=== PATIENT | female | born 1995 | race Two or more races ===

== ENCOUNTER 2025-02-13 05:41 | Inpatient (IN) | payer OTHER ==
[~2025-02-13] VITALS: Ht 157.5 cm; Wt 90.7 kg
[2025-02-13] VITALS (9 sets, daily range): BP systolic 123–140; BP diastolic 72–99; O2SAT 98
[2025-02-13] MEDS ORDERED: RINGERS SOLUTION,LACTATED 1,000 ML IV SCH (06:00)
[2025-02-13 06:49] LABS: BASO % 0.2 % (0.1-1.2); EOS # 0.09 (0.04-0.54); EOS % 0.8 % (0.7-7.0); LYMPH # 1.88 (1.18-3.74); LYMPH % 17.5 % (19.3-53.1); MEAN PLATELET VOLUME 10.90 fl (9.4-12.4); MONO # 0.66 (0.24-0.82); MONO % 6.1 % (4.7-12.5); NEUT # 8.05 (1.56-6.13); NEUT % 75.0 % (34.0-71.1); RED CELL DISTRIBUTION WIDTH 13.9 % (11.6-14.4); URINE APPEARANCE Clear; URINE BILIRRUBIN Negative (NEGATIVE); URINE BLOOD Negative; URINE COLOR Yellow; URINE GLUCOSE Negative (NEGATIVE); URINE KETONE Negative (NEGATIVE); URINE LEUKOCYTE Negative; URINE NITRATE Negative; URINE PROTEIN Negative (NEGATIVE); URINE UROBILINOGEN 0.2 E.U./dl
[2025-02-13 06:52] LABS: URINE BACTERIA 381.9 uL (0.0-1933); URINE EPITHELIAL CELLS 5.9 uL (0.0-38.8); URINE RBC 4.5 uL (0.0-20.8); URINE WBC 5.6 uL (0.0-23.2)
[2025-02-13 07:08] LABS: URINE CAST 0.00 uL (0.0-1.40)
[2025-02-13 07:46] LABS: ALT/SGPT 29.0 U/L (12-78); AST/SGOT 16.0 U/L (15-37); BILIRUBIN TOTAL 0.65 mg/dL (0.3-1.2); BUN CREA RATIO 24.0 (7.0-25.0); CREATININE SERUM 0.49 mg/dL (0.55-1.02); GFR 149.31; GLOBULINA 3.8 G/DL (2.4-3.5); GLUCOSE FASTING 87.0 mg/dL (65-100); OSMOLALITY SERUM 279.0 MOSM/KG (275-295)
[2025-02-13 07:55] LABS: INR 0.99
[2025-02-13] MEDS ORDERED: OXYTOCIN 20 UNITS/500ML RL PIGGYBAG IV SCH ×2 (10:30→11:00)
[2025-02-13] MEDS ORDERED: MORPHINE SULFATE 4 MG/ML VIAL IV PRN (10:30)
[2025-02-13] MEDS ORDERED: OXYTOCIN 20 UNITS/1000ML RL PIGGYBAG IV ONE (16:59)
[2025-02-13] MEDS ORDERED: ERYTHROMYCIN BASE OPHT 1GM EACH TUBE OP ONE (16:59)
[2025-02-13] MEDS ORDERED: CHLORHEXIDINE GLUCONATE 120 ML BOTTLE TOP ONE (16:59)
[2025-02-13] MEDS ORDERED: LIDOCAINE HCL 1% 10ML VIAL ONE (17:00)
[2025-02-13] MEDS ORDERED: CHLORHEXIDINE GLUCONATE 120 ML BOTTLE TOP SCH (19:00)
[2025-02-13] MEDS ORDERED: OXYTOCIN 1,000 ML IV SCH (19:00)
[2025-02-13] MEDS ORDERED: PNV,CALCIUM 72/IRON/FOLIC ACID 1 TAB TABLET PO NR (19:30)
[2025-02-14] VITALS: BP 124/85
[2025-02-14 03:21] LABS: BASO % 0.1 % (0.1-1.2); EOS # 0.02 (0.04-0.54); EOS % 0.1 % (0.7-7.0); LYMPH # 1.96 (1.18-3.74); LYMPH % 11.3 % (19.3-53.1); MEAN PLATELET VOLUME 11.20 fl (9.4-12.4); MONO # 0.91 (0.24-0.82); MONO % 5.3 % (4.7-12.5); NEUT # 14.31 (1.56-6.13); NEUT % 82.7 % (34.0-71.1); RED CELL DISTRIBUTION WIDTH 13.9 % (11.6-14.4)
[2025-02-14 08:00] VITALS: BP 138/82
[2025-02-14] MEDS ORDERED: PNV,CALCIUM 72/IRON/FOLIC ACID 1 TAB TABLET PO SCH (09:00)
[2025-02-14] MEDS ORDERED: DOCUSATE SODIUM 100MG CAP PO SCH (09:00)
[2025-02-14 16:00] VITALS: BP 144/89
[2025-02-15 01:20] VITALS: BP 147/98
[2025-02-15 01:35] VITALS: BP 150/100
[2025-02-15 02:36] LABS: BASO % 0.1 % (0.1-1.2); EOS # 0.13 (0.04-0.54); EOS % 0.9 % (0.7-7.0); LYMPH # 2.04 (1.18-3.74); LYMPH % 14.9 % (19.3-53.1); MEAN PLATELET VOLUME 11.00 fl (9.4-12.4); MONO # 0.64 (0.24-0.82); MONO % 4.7 % (4.7-12.5); NEUT # 10.79 (1.56-6.13); NEUT % 78.9 % (34.0-71.1); RED CELL DISTRIBUTION WIDTH 14.1 % (11.6-14.4)
[2025-02-15 02:47] LABS: ALT/SGPT 25.0 U/L (12-78); AST/SGOT 18.0 U/L (15-37); BILIRUBIN TOTAL 0.45 mg/dL (0.3-1.2); BUN CREA RATIO 18.0 (7.0-25.0); CREATININE SERUM 0.44 mg/dL (0.55-1.02); GFR 169.05; GLOBULINA 3.5 G/DL (2.4-3.5); GLUCOSE FASTING 82.0 mg/dL (65-100); OSMOLALITY SERUM 282.0 MOSM/KG (275-295)
[2025-02-15 03:00] LABS: URINE APPEARANCE Clear; URINE BILIRRUBIN Negative (NEGATIVE); URINE BLOOD Large; URINE COLOR Orange; URINE GLUCOSE Negative (NEGATIVE); URINE KETONE Negative (NEGATIVE); URINE LEUKOCYTE Moderate; URINE NITRATE Negative; URINE PROTEIN Trace (NEGATIVE); URINE UROBILINOGEN 0.2 E.U./dl
[2025-02-15 03:03] LABS: URINE BACTERIA 467.8 uL (0.0-1933); URINE EPITHELIAL CELLS 27.2 uL (0.0-38.8); URINE WBC 175.0 uL (0.0-23.2)
[2025-02-15 03:17] LABS: URINE CAST 0.28 uL (0.0-1.40)
[2025-02-15 08:00] VITALS: BP 154/90
[2025-02-15 08:30] VITALS: BP 150/110
[2025-02-15 09:00] VITALS: BP 160/90
[2025-02-15] MEDS ORDERED: NIFEDIPINE 30 MG TAB.SA.OSM PO SCH (10:15)
[2025-02-15 16:30] VITALS: BP 135/85
[2025-02-16 01:04] VITALS: BP 138/104
[2025-02-16] MEDS ORDERED: ACETAMINOPHEN 500 MG GEL..CAP PO PRN (01:15)
[2025-02-16 05:04] VITALS: BP 130/102
[2025-02-16 08:04] VITALS: BP 130/80
[2025-02-16] MEDS ORDERED: LABETALOL HCL 100 MG TABLET PO SCH (09:00)
[2025-02-16 13:15] LABS: BASO % 0.2 % (0.1-1.2); EOS # 0.17 (0.04-0.54); EOS % 1.6 % (0.7-7.0); LYMPH # 1.76 (1.18-3.74); LYMPH % 17.0 % (19.3-53.1); MEAN PLATELET VOLUME 10.50 fl (9.4-12.4); MONO # 0.43 (0.24-0.82); MONO % 4.2 % (4.7-12.5); NEUT # 7.92 (1.56-6.13); NEUT % 76.4 % (34.0-71.1); RED CELL DISTRIBUTION WIDTH 14.3 % (11.6-14.4)
[2025-02-16 13:54] LABS: ALT/SGPT 30.0 U/L (12-78); AST/SGOT 18.0 U/L (15-37); BILIRUBIN TOTAL 0.63 mg/dL (0.3-1.2); BUN CREA RATIO 15.0 (7.0-25.0); CREATININE SERUM 0.6 mg/dL (0.55-1.02); GFR 118.19; GLOBULINA 3.7 G/DL (2.4-3.5); GLUCOSE FASTING 144.0 mg/dL (65-100); OSMOLALITY SERUM 282.0 MOSM/KG (275-295)
[2025-02-16 16:08] VITALS: BP 129/84
[2025-02-16] MEDS ORDERED: LABETALOL HCL100 MG PO (16:55)
[2025-02-16] MEDS ORDERED: Procardia Xl 30MG TA PO (16:55)
[2025-02-16] MEDS ORDERED: IBUPROFEN400 MG PO (16:56)
== END 2025-02-16 17:20 | disposition home or self-care (01) | DRG 807 ==
LOC: LDR 05:41 → OB/GYN 20:10
PROVIDERS: ADMIT Obstetrics & Gynecology; ATTEND Obstetrics & Gynecology
PROC: 4A1HXCZ Monitoring of Products of Conception, Cardiac Rate, External Approach (ICD-10-PCS; 2025-02-13)
PROC: 10E0XZZ Delivery of Products of Conception, External Approach (ICD-10-PCS; principal; 2025-02-14)
PROC: 0KQM0ZZ Repair Perineum Muscle, Open Approach (ICD-10-PCS; 2025-02-14)
DX: O70.1 Second degree perineal laceration during delivery (principal); Z37.0 Single live birth; Z3A.39 39 weeks gestation of pregnancy